=== PATIENT | male | born 1930 | race Caucasian/White ===

== ENCOUNTER 2016-11-27 13:33 | Inpatient (IN) | payer OTHER ==
[~2016-11-27 13:33] MED LIST: ACETAZOLAMIDE250 M1 PO; ASPIRIN CHILDRE81 MG PO; ASPIRIN EC81 M1 PO; AUGMENTIN 875875 MG PO; BREO ELLIPTA 11 EACH PO; BREO ELLIPTA1 POW INH; BUDESONIDE0.25 MG/2 INH/SOL; CEFUROXIME250 M1 PO; CEFUROXIME250 MG PO; CENTRUM SILVER1 TA1 PO; CIPRO500 M1 PO; COLACE100 M1 PO; DOXYCYCLINE HY100 M2 PO; DUONEB 3 MG/3 ML3 ML INH/SOL; ENDOCET 5-3251 EACH PO; FINASTERIDE5 M1 PO; FLOMAX(MONOGRA0.4 MG PO; FLOMAX0.4 M1 PO; FUROSEMIDE40 MG PO; IPRAT-ALBUT 0.5-3 ML INH; IPRAT-ALBUT 0.5-3 ML NEB; K-DUR 20MEQ TA20 MEQ PO; K-TAB ER20 MEQ PO; KLOR-CON 1010 ME1 PO; LASIX40 M1 PO; LASIX40 MG PO; LASIX80 M1 PO; LIDODERM 5% PAT1 PAT EXT; LOSARTAN POTASS25 M1 PO; LOW DOSE ASPIRI81 MG PO; MILK OF MAGNESI30 ML PO; MIRALAX17 G1 PO; MIRALAX17 GM PO; MUCINEX100 MG PO; NASONEX17 GM NASB; NYSTATIN100000 UNI PO; OXYCODONE-ACET1 EACH PO; PERCOCET 5-3251 EACH PO; PHENASEPTIC177 ML EXT; PREDNISONE10 M2 PO; PREDNISONE10 MG PO; PREDNISONE20 M1 PO; PREDNISONE5 M1 PO; PROAIR HFA0.09 MG/Ac PO; PROS5 PO; SENOKOT S 50 MG1 TAB PO; Senokot S PO; TESSALON PERLE100 M1 PO; TYLENOL TAB 32325 MG PO; TYLENOL XSTR500 MG PO; VALTREX500 M1 PO; VANCOMYCIN1 GM/2501 IV; VENTOLIN HFA18 GM INH; VITAB121000 PO; VITAMIN C1000 M1 PO; VITAMIN D31000 IU PO; ZESTRIL2.5 M1 PO; ZOLPIDEM TARTRA10 MG PO
--- NOTE | 2016-11-27 14:04 | Patient Discharge Instructions ---
Discharge Instructions General Discharge Information You were seen/treated for: Severe end-stage COPD, Special Instructions: Patient became inpatient hospice Diet Continue normal diet: Yes Activity Additional ACTIVITY Info: As tolerated with assistance Acute Coronary Syndrome Inclusion Criteria At DC or during hospital stay patient has or had the following: ACS DIAGNOSIS No Discharge Core Measures Meds if any: Prescribed or Continued at Discharge Meds if any: NOT Prescribed or Continued at Discharge Congestive Heart Failure Inclusion Criteria At DC or during hospital stay patient has or had the following: CHF DIAGNOSIS No Discharge Core Measures Meds if any: Prescribed or Continued at Discharge Meds if any: NOT Prescribed or Continued at Discharge Cerebrovascular accident Inclusion Criteria At DC or during hospital stay patient has or had the following: CVA/TIA Diagnosis No Discharge Core Measures Meds if any: Prescribed or Continued at Discharge Meds if any: NOT Prescribed or Continued at Discharge Venous thromboembolism Inclusion Criteria VTE Diagnosis No VTE Type NONE VTE Confirmed by (Test) NONE Discharge Core Measures - Per Current guidelines, there needs to be overlap - treatment for the first 5 days of Warfarin therapy. - If discharged on Warfarin prior to 5 days of - overlap therapy, the patient will need to be - assessed for post discharge needs including - *Post discharge parental anticoagulation - *Warfarin and/or parental anticoagulation education - *Follow up date to check INR post discharge At least 5 days overlap therapy as Inpatient No Meds if any: Prescribed or Continued at Discharge Note: Overlap Therapy is Warfarin and Anticoagulant Meds if any: NOT Prescribed or Continued at Discharge
--- NOTE | 2016-11-27 14:50 | PN- Att Addend ---
Attending Addendum Attending Brief Note Patient still doing poorly after discussions with patient and patient's daughter decided that the patient would like hospice consult and comfort care consultation was obtained and they admitted the patient is ready for hospice care will be transferred to their service.
--- NOTE | 2016-11-27 15:53 | NUR ---
WOUND CARE: PT KNOWN TO THIS INSTRUMENTATION TECHNICIAN FROM [facility] AND INPATIENT STAYS - CURRENTLY HOSPICE CARE - SPINE STAGE 1 PRESSURE INJURY 4X1 CM - COCCYX STAGE 2 PRESSURE INJURY 0.2 X 0.3 CM, RIGHT BUTTOCKS STAGE 2 1.2 X 0.3 CM, AND LEFT BUTTOCKS 0.5 X 0.3 CM STAGE 2 PRESSURE INJURY - EXPECT WOUND DETERIORATION RECOMMENDATION: PALLIATIVE CARE - APPLY DUODERM DRESSING Q 5 DAYS AND PRN TO BUTTOCKS, COCCYX AND SPINE - Q 2 HOUR REPOSITIONING
--- NOTE | 2016-11-27 16:30 | PN- Att Addend ---
Attending Addendum Attending Brief Note Hospice Admission H&P Chief Complaint: Eval. for inpatient hospice Source: pt, medical records Exam Limitations: Pts condition, some confusion Associated Symptoms: pulmonary congestion, dyspnea, abdominal pain History of Present Illness: 86 [id number] with past medical history end-stage COPD, severe pulmonary hypertension, chronic afib, admitted 11/22/16 with recurrent dyspnea with acute on chronic diastolic heart failure and recent COPD exacerbation, just released from hospital a week ago. He has significant dyspnea which is not improving, is fatigued and no longer wishes restorative care, but for comfort care or hospice if appropriate. He has had 8 inpatient admissions over the past year. He is eating 50-75% of meals and has lost approximately 20lbs last 4 months. Allergies: quinine, amiodorone Review of Systems: positive for dyspnea. No pain currently. Did have abdominal pain earlier which was relieved with morphine. Past Medical History: COPD on 2lnp O2 at home, CHF, TIA, DVT/PE s/p IVC filter, Afib (ASA only 2/2 GIB), pulm. HTN, MR, HTN, HLD, osteoporosis with prior humeral fx and compression fx s/p vertebroplasty, MRSA, BPH, chronic bilateral pleural effusion Family History: Diabetes Psychosocial History: Recently , lives with daughter Tameka who is POA. No advance directive. Exam and Diagnostic Data: Vital signs: T-97.5; HR-60; RR-20; BP-112/60 O2 sat 99% on 2lnp Physical Exam: General: Alert, frail elderly male sitting in bed, dyspneic, NAD HEENT: PERRL. Sclera anicteric. Oral musoca dry, own dentition Neck: supple. Negative for bruit CV: RRR, SANDIP 2/6 Resp.: labored, RR-22, lung sounds decreased with upper airway rhonchi, O2 2lnp GI: soft, nontender, pos. bowel sounds EXT: mild bilat. LE edema Skin: thin, ecchymosis noted to extremities Neuro/Psych: alert, pleasant, conversant but dyspneic, aware of poor prognosis and requesting comfort/hospice care. Affect is reactive and mood euthymic. Oriented to person, place, and year. Confused to date and day of week. Labs/Imaging: WBC 11.9, Hgb 9.4, Hct 29. Na 146, Bun 42, BNP 3190 CXR IMPRESSION: Cardiomegaly with bilateral pleural effusions, bibasilar atelectasis and slightly improved CHF. CT ABD&PELVIS: IMPRESSION: 1. Bibasilar infiltrate and effusions greater on right than left. Cardiomegaly. 2. No acute abnormality of the abdomen or pelvis. There is diverticulosis of the colon but no acute abnormality of the bowel. 3. Cholelithiasis. No bile duct dilatation. Assessment/Plan: 86 [id number] with past medical history end-stage COPD, severe pulmonary hypertension, chronic afib, now with acute on chronic diastolic heart failure, end-stage COPD, failure to thrive who is requesting hospice care and is appropriate for inpatient care. Orders written. For respiratory distress/pain control: morphine 2mg IV/SQ every hour as needed For anxiety/restlessness: Ativan 0.5mg IV/SQ every 2 hours as needed For Secretions: Scopolamine patch every 72 hours; Robinul 0.2mg IV/SQ every 4 hrs as needed. Total respiratory care Continue Lisinopril at decreased dose of 10mg po daily Prednisone 30mg po daily, will taper Guaifenesin 600mg po every 12 hours Lasix 40mg IV bid
[2016-11-28 06:28] VITALS: BP 102/60
--- NOTE | 2016-11-28 12:45 | PN- Att Addend ---
Attending Addendum Attending Brief Note Patient in bed little congested medications were adjusted adjusted in planning of some abdominal discomfort may be constipated despite not eating or drinking much his vital signs are still maintained and will continue comfort care
--- NOTE | 2016-11-29 10:50 | PN- Att Addend ---
Attending Addendum Attending Brief Note Patient seems comfortable at the present time in no respiratory distress not congested, vital signs are holding , daughter at the bedside to continue hospice comfort care
--- NOTE | 2016-11-30 17:38 | PN- Att Addend ---
Attending Addendum Attending Brief Note Mr. Navarrete appears to be sleeping comfortably. We are continuing his present hospice regimen.
--- NOTE | 2016-12-01 18:41 | PN- Att Addend ---
Attending Addendum Attending Brief Note Mr. Navarrete is unresponsive but appears to be in no acute distress. We continue to manage using the hospice protocol.
--- NOTE | 2016-12-17 09:11 | Discharge Summary ---
Visit Information Visit Dates Admission Date: 11/27/16 Discharge Date: 12/01/16 Hospital Course Course Attending Physician: DERRICK MARINELLI MD Primary Care Physician: DERRICK MARINELLI MD Hospital Course: 86 [id number] with past medical history end-stage COPD, severe pulmonary hypertension, chronic afib, now with acute on chronic diastolic heart failure, end-stage COPD, failure to thrive who was admitted for inpatient hospice care to manage symptoms. He passed peacefully on 12/01/16. Allergies: Coded Allergies: amiodarone (Severe, RESPIRATORY DISTRESS 10/26/16) quinine (BOTH ARMS FROM ELBOW DOWN BRIGHT RED 10/26/16) Disposition Summary Disposition Principal Diagnosis: Acute on chronic diastolic heart failure COPD, end stage Failure to thrive Additional Diagnosis: Pulmonary hypertension, severe Atrial fibrillation Discharge Disposition: Discharge Instructions General Discharge Information Code Status: Hospice Patient's Diet: N/A Patient's Activity: N/A Follow-Up Instructions/Appts: N/A Medications at Discharge Discharge Medications: Continue taking these medications: Tamsulosin HCl (Flomax) 0.4 MG CAP.ER.24H 1 Capsule ORAL 0900 Comments: Last Taken: 10/31/16 Time: 1046 Aspirin (Ecotrin*) 81 MG TABLET.DR 1 Tablet ORAL 0900 Comments: Last Taken: 11/14/16 Time: 1140 Fluticasone/Vilanterol (Breo Ellipta 100-25 Mcg INH) 1 EACH BLST.W.DEV 1 Puff ORAL 0900 Comments: Last Taken: 11/14/16 Time: 1140 Guaifenesin (Mucinex) 100 MG GRAN.PACK 1 Tablet ORAL 0900,2100 as needed for COPD Comments: Last Taken: 11/14/16 Time: 1140 Mometasone Furoate (Nasonex) 17 GM SPRAY.PUMP 2 [place] Both sides of nose 0900 as needed for NASAL CONGESTION Albuterol Sulfate (Ventolin Hfa) 18 GM HFA.AER.AD 2 Puff Inhale through mouth EVERY 4-6 HOURS NEEDED as needed for COPD Finasteride (Finasteride) 5 MG TABLET 5 Milligram ORAL DAILY Days = 30 Comments: Last Taken: 11/14/16 Time: 1140 Oxycodone HCl/Acetaminophen (Oxycodone-Acetaminophen 5-325) 5 MG-325 MG TABLET 1 Tablet ORAL 4 times daily as needed as needed for PAIN Qty = 30 Comments: PER PT DAUGHTER NOT TAKING Benzonatate (Tessalon Perle) 100 MG CAPSULE 1 Capsule ORAL THREE TIMES DAILY Days = 10 Comments: Last Taken: 11/14/16 Time: 1140 Acetazolamide (Acetazolamide) 250 MG TABLET 1 Tablet ORAL 1600 Days = 30 Instructions: TAKE 1 TAB AT 4.00 IN THE EVENING ON friday/friday/friday. DO NOT TAKE LASIX WHEN YOU TAKE THIS. Comments: Fri AND SUNDAYS AT 1600 PER PT Furosemide (Lasix) 40 MG TABLET 1 Tablet ORAL TWICE DAILY Days = 30 Instructions: take 40 mg of Lasix twice daily on Friday and Friday Take 40 mg Lasix in the morning and Diamox 250 mg in the evening on friday, Friday and Friday. Comments: 40MG PO BID ON Fri AND FRI, THEN 40MG AM ONLY ON Fri AND FRI Last Taken: 11/14/16 Time: 1140 Ipratropium/Albuterol Sulfate (Iprat-Albut 0.5-3(2.5) MG/3 Ml) 0.5 MG-3 MG (2.5 MG BASE)/3 ML AMPUL.NEB 1 VIAL Inhale through mouth THREE TIMES DAILY Comments: PER PT DAUGHTER Copies To: DERRICK MARINELLI MD
== END 2016-12-01 22:15 | disposition expired | DRG 293 ==
LOC: 2NA 13:33
PROVIDERS: ADMIT Internal Medicine
DX: I11.0 Hypertensive heart disease with heart failure (principal); Z51.5 Encounter for palliative care; I27.2 Other secondary pulmonary hypertension; I48.2 Chronic atrial fibrillation; R62.7 Adult failure to thrive; I50.33 Acute on chronic diastolic (congestive) heart failure; J44.9 Chronic obstructive pulmonary disease, unspecified; Z86.73 Personal history of transient ischemic attack (TIA), and cerebral infarction without residual deficits; Z86.718 Personal history of other venous thrombosis and embolism; Z86.711 Personal history of pulmonary embolism
CPT/HCPCS: 87086; J0780; J1630; J1940; J7512